=== PATIENT | male | born 1995 | race Caucasian/White ===

== ENCOUNTER → 2019-08-12 14:10 | Outpatient (CLI) | payer OTHER, SELFPAY ==
[2019-08-12 14:29] LABS: Hematocrit 46.3 % (41-53); Hemoglobin 15.8 g/dL (13.5-17.5); Mean Corpuscular HGB Conc 34.1 % (30-36); Mean Corpuscular Hemoglobin 30.9 PG (26-34); Mean Corpuscular Volume 90.4 fL (80-100); Platelet Count 216 X10^3/uL (150-400); Red Blood Cell Count 5.11 X10^6/uL (4.5-5.9); Red Cell Distribution Width 12.9 % (11.6-14.8); White Blood Cell Count 6.7 X10^3/uL (4.5-11.0)
[2019-08-12 14:40] LABS: Alanine Aminotransferase 19 IU/L (<50); Albumin 5.2 g/dL (3.5-5.0); Albumin Globulin Ratio 1.7 (1.0-2.8); Alkaline Phosphatase 66 U/L (38-126); Aspartate Aminotransferase 27 IU/L (17-59); Blood Urea Nitrogen 14 mg/dL (9-20); Calcium 9.8 mg/dL (8.4-10.2); Carbon Dioxide 31 mmol/L (22-32); Chloride 103 mmol/L (98-107); Estimated Glomerular Filt Rate > 60.0 mL/min (>60); Globulin 3.1 g/dL (1.7-4.1); Glucose 109 mg/dL (70-100); HEMOLYSIS < 15 (0-50); Lipase 65 U/L (23-300); Sodium 142 mmol/L (137-145); Total Protein 8.3 g/dL (6.3-8.2)
[2019-08-12 15:41] LABS: TSH w/ Reflex to FT4 0.91 uIU/mL (0.47-4.68)
== END ==
PROVIDERS: PCP Student in an Organized Health Care Education/Training Program; Referring Provider Student in an Organized Health Care Education/Training Program; Visit Provider Student in an Organized Health Care Education/Training Program
DX: R10.9 Unspecified abdominal pain (principal); R68.81 Early satiety; Z76.89 Persons encountering health services in other specified circumstances
CPT/HCPCS: 36415; 80053; 83690; 84443; 85027

== ENCOUNTER → 2020-07-11 09:22 | Outpatient (CLI) | payer OTHER, SELFPAY ==
[2020-07-11 17:21] LABS: HIV 1 & 2 Ab/Ag 4th Gen Combo NEGATIVE (NEGATIVE)
[2020-07-12 12:53] LABS: RPR Screen Non Reactive (Non Reactive)
== END ==
PROVIDERS: PCP Student in an Organized Health Care Education/Training Program; Referring Provider Student in an Organized Health Care Education/Training Program; Visit Provider Student in an Organized Health Care Education/Training Program
DX: Z72.51 High risk heterosexual behavior (principal)
CPT/HCPCS: 36415; 86592; 87389

== ENCOUNTER → 2020-09-20 11:41 | Outpatient (CLI) | payer OTHER, SELFPAY ==
--- NOTE | 2020-09-20 11:50 | DIET.PN ---
Dietary Progress Note Assessment: 25y M attending nutrition visit for early satiety, abnormal weight gain, and health surveillance. Pt is x3y, is in [place] and is deployed often. Pt and his do not know how to cook so subsist mostly on ultraprocessed foods and take out. Pt is interested in learning healthy eating habits to reduce chance for metabolic disease as his father has a variety of chronic conditions and sedentary lifestyle. Pt started exercising when deployed last year, was 220#, three months later when she returned 190#, over past 2mo pt has regained 15#. Pt could go all day without eating or drinking but knows he needs to learn to better fuel his body. Pt is more hungry and has sweet tooth when around, goes out to eat more then too. 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 Usual Day ( home): B: none L: comes home for lunch- microwave pizza or two 10pm: leftovers, cereal, pasta, meat and cheese sandwich likes heavy food and pasta or junk food do not work out together Usual Day ( away): B: banana D: bowl cereal Exercise: 1h/d 20min cardio c 40min weights Pt Goals: 1. Pt doesn't want to be fittest person in the world but wants abs and to be healthier 2. Pt wants to learn to cook and meal prep Dislikes: no seafood (shrimp, sushi, ocean fish) otherwise likes most food. will eat spicy, bland, F/V, land animals, dairy, eggs (some), all the carbs has instapot, willing to use more HT: 6'3 WT: 205# weight goal: 195# BMI: 25.5 Labs: FBG 105 H Nutrition Diagnosis: undesirable food choices r/t nutrition related knowledge deficit aeb pt has lost 30# and regained 15# over the past 6mo, pt diet reliant on ultraprocessed foods with undesirable meal spacing, pt not fueling properly for workout. Interventions: 1. Provided pt copy of cardiometabolic food plan 1800-2200kcal level and instructed pt on supportive foods in each food category to start incorporating into his diet for good health. 2. Introduced pt to plate balance. Using food models, created examples of common unbalanced meals and worked c pt to balance meals. 3. Using EMR, performed macronutrient assessment and provided pt with macronutrient goals as listed in EER. 4. To address pts reliance on ultraprocessed foods, counselled on methods for increasing food skill via meal prep delivery programs and meal prep recipe sheets. EER: 2100kcals, 90-110g PRO, 38g Fiber Monitoring/Evaluations: f/u in 1mo to problem solve barriers and continue education
[2020-09-20 12:13] VITALS: BMI 25.5
== END ==
PROVIDERS: PCP Student in an Organized Health Care Education/Training Program; Referring Provider Student in an Organized Health Care Education/Training Program; Visit Provider Student in an Organized Health Care Education/Training Program
DX: R63.5 Abnormal weight gain (principal); Z71.3 Dietary counseling and surveillance; Z68.25 Body mass index [BMI] 25.0-25.9, adult
CPT/HCPCS: 97802

== ENCOUNTER → 2020-11-08 14:50 | Outpatient (CLI) | payer OTHER, SELFPAY ==
--- NOTE | 2020-11-08 14:53 | DIET.PN1 ---
Dietary Progress Note 25y M attending f/u for health surveillance. Pt often overeats when at home with spouse then forgets to eat at all when spouse is on deployment. Pt is interested in regulating his food and exercise routines to support health in the long run. Pt down to 197# from 205# a month ago. Pt had conversation c spouse to not purchase him sweet snack foods to show him love. Pts spouse was receptive and supports his health goals. [place] activity [place]. Pt purchased jhonatan cubes, has been using these for portion control and to ensure adequate intake from all food groups. Pt eating more grapes, carrots, lean protein, and less ultraprocessed foods. Pt is is drinking more water by adding True Lemon Lemonade packets (1g sugar each) and is feeling better hydrated. Pt and spouse recently purchased home so hasn't done meal prepping for past month but has a goal to organize the new kitchen to be functional. Pt will sign up for meal service to learn how to cook. Overall great progress. F/u in 5w to assess progress and problem solve barriers.
== END ==
PROVIDERS: PCP Student in an Organized Health Care Education/Training Program; Referring Provider Student in an Organized Health Care Education/Training Program; Visit Provider Student in an Organized Health Care Education/Training Program
DX: Z71.3 Dietary counseling and surveillance (principal)
CPT/HCPCS: 97803

== ENCOUNTER → 2021-02-07 10:22 | Outpatient (CLI) | payer OTHER, SELFPAY ==
[2021-02-08 06:36] LABS: HSV 2 IGG AB < 0.91 index (0.00-0.90)
[2021-02-08 08:26] LABS: RPR Screen Non Reactive (Non Reactive)
== END ==
PROVIDERS: PCP Student in an Organized Health Care Education/Training Program; Referring Provider Student in an Organized Health Care Education/Training Program; Visit Provider Student in an Organized Health Care Education/Training Program
DX: Z72.51 High risk heterosexual behavior (principal)
CPT/HCPCS: 36415; 86592; 86695; 86696; 87389